=== PATIENT | male | born 1990 | race Caucasian/White ===

== ENCOUNTER 2019-03-30 10:37 | Emergency (ER) | payer SELFPAY ==
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
[2019-03-30 12:42] LABS: Absolute Lymphocytes (CBC) 1.2 K/uL (0.7-4.9); Basophils % 0.2 % (0-1.3); Hematocrit 44.3 % (39.6-49.0); Lymphocytes % 16.2 % (15.3-44.8); MPV 7.5 fL (7.6-11.3); RBC Red Blood Cell Count 4.92 M/uL (4.33-5.43)
[2019-03-30 12:47] LABS: Protime INR 0.91
[2019-03-30] MEDS ORDERED: NA CHLORIDE 0.9% 500 ML ONE (12:48)
[2019-03-30 12:50] LABS: Barbiturates NEGATIVE (NEGATIVE); Benzodiazepines NEGATIVE (NEGATIVE); Cocaine NEGATIVE (NEGATIVE); METHAMPHETAM NEGATIVE (NEGATIVE); Methadone NEGATIVE (NEGATIVE); Opiates NEGATIVE (NEGATIVE); Phencyclidine NEGATIVE (NEGATIVE); THC Cannibis NEGATIVE (NEGATIVE)
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
[2019-03-30 12:58] LABS: ALT/SGPT 96 U/L (12-78); AST/SGOT 145 U/L (15-37); Alkaline Phosphatase 108 U/L (45-117); BUN Blood Urea Nitrogen 5 mg/dL (7-18); Bicarbonate 27 mmol/L (21-32); Bilirubin Direct 0.1 mg/dL (0-0.2); Bilirubin Total 0.5 mg/dL (0.2-1.0); Glucose Level 75 mg/dL (74-106); Potassium 3.7 mmol/L (3.5-5.1); Protein, Total 8.6 g/dL (6.4-8.2); Sodium Level 145 mmol/L (136-145)
--- NOTE | 2019-03-30 13:43 | EKG ---
Test Date: 2019-03-30 Test Time: 12:50:54 Hotel Maintenance Worker: LESLIE MEASUREMENT RESULTS: Intervals: Rate: 87 IN: 132 QRSD: 84 QT: 386 QTc: 464 Basco: P: 78 IN: 132 QRS: 81 T: 82 INTERPRETIVE STATEMENTS: Normal sinus rhythm Normal ECG No previous ECG available for comparison Electronically Signed On 03-30-19 13:43:06 CDT by Jonah Banks
[2019-03-30 14:00] LABS: Urine Blood NEGATIVE (NEG); Urine Glucose NEGATIVE (NEG); Urine Protein NEGATIVE (NEG); Urine Specific Gravity 1.005 (1.005-1.030); Urine pH 5.5 (5.0-7.0)
== END 2019-03-30 14:02 | disposition home or self-care (01) ==
LOC: ER 10:37
DX: S80.10XA Contusion of unspecified lower leg, initial encounter (principal); F10.129 Alcohol abuse with intoxication, unspecified; V48.0XXA Car driver injured in noncollision transport accident in nontraffic accident, initial encounter; Y93.9 Activity, unspecified; Y92.9 Unspecified place or not applicable
CPT/HCPCS: 36415; 70450; 72125; 80048; 80076; 80307; 80320; 80329; 81003; 85025; 85610; 85730; 93005; 99284

== ENCOUNTER 2021-03-19 19:43 | Emergency (ER) | payer SELFPAY ==
--- OUTSIDE RECORDS SUMMARY | 2021-03-19 20:09 | XMS REPORT | Continuity of Care Document ---
:1990 Author Organization [facility] t Address [address] [place] [address] Care Team Providers Name Role Phone Unavailable Unavailable Unavailable Payers Payer Name Policy Type Policy Number Effective Date Expiration Date S ource Problems This patient has no known problems. Allergies, Adverse Reactions, Alerts Allergy Allergy Status Severity Reaction(s) Onset Inactive Treating Comm ents Source Name Type Date Date Clinician No Known DA Active U 2018-0 [facility]ie 3-05 [facility] s 00:00: d 00 [facility] Medications This patient has no known medications. Procedures This patient has no known procedures. Results This patient has no known results.
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
== END 2021-03-20 07:12 | disposition left against medical advice (07) ==
LOC: ER 19:43
DX: Z53.21 Procedure and treatment not carried out due to patient leaving prior to being seen by health care provider (principal)
CPT/HCPCS: 99282

== ENCOUNTER 2021-06-28 11:54 | Emergency (ER) | payer SELFPAY ==
--- OUTSIDE RECORDS SUMMARY | 2021-06-28 11:56 | XMS REPORT | Continuity of Care Document ---
:1990 Author Organization [facility] t Address [address] [place] [address] Care Team Providers Name Role Phone Unavailable Unavailable Unavailable Payers Payer Name Policy Type Policy Number Effective Date Expiration Date S ource Problems This patient has no known problems. Allergies, Adverse Reactions, Alerts Allergy Allergy Status Severity Reaction(s) Onset Inactive Treating Comm ents Source Name Type Date Date Clinician No Known DA Active U 2018-0 [facility] Medications This patient has no known medications. Procedures This patient has no known procedures. Results This patient has no known results.
[2021-06-28] MEDS ORDERED: ONDANSETRON 4 MG/2 ML VIAL ONE (12:41)
[2021-06-28 12:44] LABS: Absolute Lymphocytes (CBC) 0.6 K/uL (0.7-4.9); Basophils % 0.3 % (0-1.3); Hematocrit 39.9 % (39.6-49.0); Lymphocytes % 13.1 % (15.3-44.8); MPV 7.6 fL (7.6-11.3); RBC Red Blood Cell Count 4.25 M/uL (4.33-5.43)
[2021-06-28 12:53] LABS: Protime INR 0.97
[2021-06-28] MEDS ORDERED: FOLIC ACID 1 MG, MULTIVITAMINS INJ 10 ML, THIAMINE HCL 100 MG in NA CHLORIDE 0.9% 1,000 ML IV ONE (13:00)
--- NOTE | 2021-06-28 13:01 | RAD REPORT ---
EXAM DESCRIPTION: CT - Abdomen Pelvis W Contrast - 06/28/2021 12:45 pm CLINICAL HISTORY: ABD PAIN COMPARISON: No comparisons TECHNIQUE: Biphasic, helical CT imaging of the abdomen and pelvis was performed following 100 ml non -ionic IV contrast. No oral contrast administered. All CT scans are performed using dose optimization technique as appropriate and may include automated exposure control or mA/KV adjustment according to patient size. FINDINGS: No suspicious findings in the lung bases. The liver, spleen, and pancreas show no suspicious findings. Liver shows fatty infiltration pattern w hen compared with the spleen. Gallbladder is distended without wall thickening or edema evident. Ston es can be occult. No biliary tree dilatation. Portal vein is unremarkable. Symmetric renal function is seen with no hydronephrosis or suspicious renal mass. No pyelonephritis o r acute parenchymal process. No bladder abnormalities. No adrenal abnormalities. No gastric dilatation or gastric wall thickening seen. Small bowel loops are not dilated. There are s everal distal small bowel loops that are fluid-filled. This is nonspecific. Acute appendicitis not shaffer spected. Manuel of the colon from cecum to rectum appear mildly thickened over what is typically seen. Mild edema pattern is evident as well. No discrete mass or pneumatosis. No free air or free fluid. No hernia, mass or bulky lymphadenopathy. No suspicious bony findings. IMPRESSION: A nonspecific mild pancolitis pattern is seen. No appendicitis or surgically emergent fi nding. Gallbladder is distended but not dilated. Stones can be occult. No biliary tree dilatation seen.
[2021-06-28 13:17] LABS: ALT/SGPT 61 U/L (12-78); AST/SGOT 133 U/L (15-37); Albumin 3.7 g/dL (3.4-5.0); Alkaline Phosphatase 123 U/L (45-117); BUN Blood Urea Nitrogen 4 mg/dL (7-18); Bicarbonate 30 mmol/L (21-32); Bilirubin Direct 0.3 mg/dL (0-0.2); Bilirubin Total 0.8 mg/dL (0.2-1.0); Glucose Level 157 mg/dL (74-106); Protein, Total 7.1 g/dL (6.4-8.2); Sodium Level 137 mmol/L (136-145)
[2021-06-28 13:20] LABS: Potassium 2.7 mmol/L (3.5-5.1)
[2021-06-28] MEDS ORDERED: POTASSIUM 25 MEQ EFFERV TAB ONE (15:02)
[2021-06-28] MEDS ORDERED: KCL 20 MEQ/100 mL IVPB 20 MEQ/100 ML BAG IV ONE (15:03)
[2021-06-28 16:17] LABS: Barbiturates NEGATIVE (NEGATIVE); Benzodiazepines NEGATIVE (NEGATIVE); Cocaine NEGATIVE (NEGATIVE); METHAMPHETAM NEGATIVE (NEGATIVE); Methadone NEGATIVE (NEGATIVE); Opiates NEGATIVE (NEGATIVE); Phencyclidine NEGATIVE (NEGATIVE); THC Cannibis NEGATIVE (NEGATIVE)
--- NOTE | 2021-06-28 16:17 | RAD REPORT ---
EXAM DESCRIPTION: US - Abdomen Exam Limited - 06/28/2021 2:40 pm CLINICAL HISTORY: Nausea / vomiting;Epigastric pain COMPARISON: Abdomen Pelvis W Contrast dated 06/28/2021 FINDINGS: No gallstones, sludge or other abnormalities within the gallbladder lumen. There is no wal l thickening or pericholecystic fluid. Gallbladder is distended but not dilated. No common duct stone or biliary tree dilatation identified. IMPRESSION: No gallbladder or biliary tree abnormality identified.
[2021-06-28] MEDS ORDERED: CIPROFLOXACIN HCL 500 MG TAB ONE (16:42)
[2021-06-28 16:53] LABS: Urine Blood Negative (Negative); Urine Glucose Negative (Negative); Urine Protein Negative (Negative); Urine Specific Gravity 1.015 (1.005-1.030); Urine pH 8.5 (5.0-7.0)
--- NOTE | 2021-06-28 17:00 | EDPHYS ---
Physician Documentation [facility] Name: Doe Vargas Age: 30 yrs Sex: Male : 1990 Arrival Date: 06/28/2021 Time: 11:57 Bed 18 Private MD: ED Physician Abiodun Srivastava HPI: 06/28 12:11 This 30 yrs old Male presents to ER via EMS with complaints of Nausea/Vomiting. pm1 12:11 The patient presents to the emergency department with nausea, vomiting, abdominal pain, pm1 of the suprapubic area, that has resolved. Onset: The symptoms/episode began/occurred yesterday. Possible causes: unknown. The symptoms are aggravated by nothing. The symptoms are alleviated by nothing. Associated signs and symptoms: Pertinent positives:. Severity of symptoms: in the emergency department the symptoms have improved. The patient has not recently seen a physician. Patient drank alcohol 2 hours prior to ER arrival. Historical: - Allergies: 12:03 No Known Allergies; sl2 - Home Meds: 12:03 None [Active]; sl2 - PMHx: 12:03 Depression; Alcoholism; sl2 - Immunization history:: Adult Immunizations up to date, Client reports receiving the Davin \T\ Davin single-dose vaccine. - Social history:: Smoking status: Patient reports the use of cigarette tobacco products, denies chronic smoking, but will smoke occasionally, Patient uses alcohol, on a daily basis. ROS: 12:11 Constitutional: Negative for fever, chills, and weight loss, Cardiovascular: Negative pm1 for chest pain, palpitations, and edema, Respiratory: Negative for shortness of breath, cough, wheezing, and pleuritic chest pain. 12:11 Back: Negative for injury and pain, MS/Extremity: Negative for injury and deformity, Skin: Negative for injury, rash, and discoloration, Neuro: Negative for headache, weakness, numbness, tingling, and seizure. 12:11 Abdomen/GI: Positive for abdominal pain, nausea and vomiting, Negative for diarrhea. 12:11 All other systems are negative. pm1 Exam: 12:11 Constitutional: This is a well developed, well nourished patient who is awake, alert, pm1 and in no acute distress. Head/Face: Normocephalic, atraumatic. 12:11 Skin: Warm, dry with normal turgor. Normal color with no rashes, no lesions, and no evidence of cellulitis. MS/ Extremity: Pulses equal, no cyanosis. Neurovascular intact. Full, normal range of motion. 12:11 Eyes: Exam is negative for acute changes, Periorbital structures: appear normal, Extraocular movements: no acute changes, Conjunctiva: no acute changes, no injection, Sclera: no acute changes, icterus, is not appreciated. 12:11 ENT: Exam is negative for acute changes, Mouth: no acute changes, Lips: normal, moist, Oral mucosa: normal, pink and intact, moist. 12:11 Cardiovascular: Exam negative for acute changes, Rate: normal, Rhythm: regular, Pulses: no pulse deficits are appreciated, Heart sounds: normal, normal S1and S2. 12:11 Respiratory: Exam negative for acute changes, respiratory distress, shortness of breath, Breath sounds: are clear throughout. 12:11 Abdomen/GI: Inspection: abdomen appears normal, Palpation: abdomen is soft and non-tender, in all quadrants. 12:11 Neuro: Exam negative for acute changes, Orientation: is normal, Mentation: is normal, Motor: is normal, moves all fours. Vital Signs: 11:50 BP 130 / 93; Pulse 75; Resp 18; Temp 97.9; Pulse Ox 99% on R/A; Weight 41.28 kg; Height sl2 6 ft. (182.88 cm); 12:07 BP 130 / 93; Pulse 75; Resp 18; Temp 97.9; Pulse Ox 99% ; sl2 13:08 BP 118 / 78; Pulse 72; Resp 16; Pulse Ox 99% on R/A; sl2 14:00 BP 107 / 63; Pulse 69; Resp 18; Temp 97.8; Pulse Ox 97% on R/A; sl2 15:00 BP 118 / 97; Pulse 111; Resp 18; Pulse Ox 99% on R/A; sl2 16:19 BP 103 / 69; Pulse 73; Resp 16; Pulse Ox 97% on R/A; mh5 17:00 BP 114 / 79; Pulse 77; Resp 85; Pulse Ox 99% on R/A; sl2 18:45 BP 122 / 72; Pulse 106; Resp 16; Pulse Ox 100% on R/A; sl2 21:50 BP 121 / 76; Pulse 78; Resp 18; Temp 98.0(O); Pulse Ox 100% on R/A; Pain 0/10; kc4 11:50 Body Mass Index 12.34 (41.28 kg, 182.88 cm) sl2 MDM: 12:10 Patient medically screened. pm1 16:22 Data reviewed: vital signs. Data interpreted: Pulse oximetry: on room air is 97 %. pm1 Interpretation: normal. 16:23 Counseling: I had a detailed discussion with the patient and/or guardian regarding: the pm1 historical points, exam findings, and any diagnostic results supporting the discharge/admit diagnosis, lab results, radiology results, the need for outpatient follow up, a family practitioner, Alcohol detoxification center, to return to the emergency department if symptoms worsen or persist or if there are any questions or concerns that arise at home. 06/28 12:11 Order name: Acetaminophen pm1 06/28 12:11 Order name: Basic Metabolic Panel; Complete Time: 13:42 pm1 06/28 12:11 Order name: CBC with Diff; Complete Time: 12:51 pm1 06/28 12:11 Order name: ETOH Level; Complete Time: 13:42 pm1 06/28 12:11 Order name: Hepatic Function; Complete Time: 13:42 pm1 06/28 12:11 Order name: PT-INR; Complete Time: 13:42 pm1 06/28 12:11 Order name: Ptt, Activated; Complete Time: 13:42 pm1 06/28 12:11 Order name: Urine Drug Screen; Complete Time: 16:21 pm1 06/28 12:11 Order name: CT Abd/Pelvis - IV Contrast Only; Complete Time: 13:42 pm1 06/28 12:11 Order name: Acetaminophen Level; Complete Time: 13:42 EDMS 06/28 14:13 Order name: US Abdomen Limited; Complete Time: 16:21 pm1 06/28 16:53 Order name: Urine Dipstick-Ancillary EDMS 06/28 12:11 Order name: EKG; Complete Time: 12:12 pm1 06/28 12:11 Order name: EKG - Nurse/Tech; Complete Time: 16:14 pm1 06/28 12:11 Order name: IV Saline Lock; Complete Time: 12:36 pm1 06/28 12:11 Order name: Labs collected and sent; Complete Time: 12:36 pm1 06/28 12:11 Order name: Urine Dipstick-Ancillary (obtain specimen); Complete Time: 16:15 pm1 Administered Medications: 12:52 Drug: Zofran (Ondansetron) 4 mg Route: IVP; Site: left antecubital; sl2 15:00 Follow up: Response: No adverse reaction; Nausea is decreased sl2 12:56 Drug: Banana Bag - (NS 0.9% 1000 ml, foLIC Acid 1 mg, Thiamine 100 mg, Multivitamin 1 sl2 amp) Route: IV; Rate: calculated rate; Site: left antecubital; 15:01 Follow up: Response: No adverse reaction; IV Intake: 1000ml sl2 15:01 Follow up: IV Status: Completed infusion; IV Intake: 1000ml sl2 14:50 Drug: Potassium Chloride 20 mEq Route: IV; Rate: calculated rate; Site: left sl2 antecubital; 15:22 Follow up: Response: No adverse reaction sl2 16:50 Follow up: IV Status: Completed infusion; IV Intake: 100ml sl2 14:50 Drug: Potassium Effervescent Tablet 50 mEq Route: PO; sl2 15:22 Follow up: Response: No adverse reaction sl2 16:43 Drug: Cipro (ciprofloxacin) 500 mg Route: PO; sl2 17:16 Follow up: Response: No adverse reaction sl2 Disposition Summary: 06/28/21 16:59 Discharge Ordered Location: Home pm1 Problem: new pm1 Symptoms: have improved pm1 Condition: Stable pm1 Diagnosis - Alcohol abuse pm1 - Vomiting pm1 - Colitis pm1 Followup: pm1 - With: Emergency Department - When: As needed - Reason: Worsening of condition Followup: pm1 - With: Private Physician - When: 2 - 3 days - Reason: Recheck today's complaints, Continuance of care, Re-evaluation by your physician Discharge Instructions: - Discharge Summary Sheet pm1 - Alcohol Abuse and Nutrition pm1 - Vomiting, Adult pm1 - Colitis pm1 - Alcohol Abuse and Dependence Information, Adult pm1 Forms: - Medication Reconciliation Form pm1 - Thank You Letter pm1 - Antibiotic Education pm1 - Prescription Opioid Use pm1 Prescriptions: - ondansetron 4 mg Oral tablet,disintegrating - place 1 tablet by TRANSLINGUAL route every 8 hours As needed; 12 tablet; pm1 Refills: 0, Product Selection Permitted - Cipro 500 mg Oral Tablet - take 1 tablet by ORAL route every 12 hours for 10 days; 20 tablet; Refills: 0, pm1 Product Selection Permitted Addendum: 07/01/2021 07:09 Co-signature as Attending Physician, Abiodun Srivastava MD I agree with the assessment and r n plan of care. Attestation: The patient's history, exam findings, diagnostics, and a summary of any interventions or procedures was reviewed in detail with Sidney Castro NP. Signatures: Dispatcher [employer] EDLA Abiodun Srivastava MD MD rn Marinas, TATUM Little CAMPAIGN ASSISTANT pm1 Olga Esparza RN RN sl2 Corrections: (The following items were deleted from the chart) 06/28 12:05 12:03 PMHx: Ulcer; sl2 sl2
--- NOTE | 2021-06-28 17:00 | ER ---
Nurse's Notes [facility] Name: Doe Vargas Age: 30 yrs Sex: Male : 1990 Arrival Date: 06/28/2021 Time: 11:57 Bed 18 Private MD: Diagnosis: Alcohol abuse;Vomiting;Colitis Presentation: 06/28 11:50 Chief complaint: Patient states: Vomiting Blood - patient c/o nausea and vomiting - sl2 onset yesterday - states vomiting blood - states 2 episodes of vomiting today - states h/o alcohol abuse with gastric ulcers - admits to drinking Smirnoffs today. Blood sugar via finger stick = 197 completed by EMS. 11:50 Coronavirus screen: Vaccine status: Patient reports receiving the 1st dose of the Covid sl2 vaccine. Davin and Davin. Ebola Screen: Patient negative for fever greater than or equal to 101.5 degrees Fahrenheit, and additional compatible Ebola Virus Disease symptoms Patient denies exposure to infectious person. Patient denies travel to an Ebola-affected area in the 21 days before illness onset. No symptoms or risks identified at this time. Initial Sepsis Screen: Does the patient meet any 2 criteria? No. Patient's initial sepsis screen is negative. Does the patient have a suspected source of infection? No. Patient's initial sepsis screen is negative. Risk Assessment: Do you want to hurt yourself or someone else? Patient reports no desire to harm self or others. Onset of symptoms was June 27, 2021. 11:50 Method Of Arrival: EMS: [facility] 11:50 Acuity: TRACI 2 sl2 Triage Assessment: 12:04 General: Appears uncomfortable, well developed, Behavior is calm, cooperative, sl2 appropriate for age, Reports Nausea \T\ vomiting. States vomiting blood - onset yesterday with 2 episodes o vomiting today. Historical: - Allergies: 12:03 No Known Allergies; sl2 - Home Meds: 12:03 None [Active]; sl2 - PMHx: 12:03 Depression; Alcoholism; sl2 - Immunization history:: Adult Immunizations up to date, Client reports receiving the Davin \T\ Davin single-dose vaccine. - Social history:: Smoking status: Patient reports the use of cigarette tobacco products, denies chronic smoking, but will smoke occasionally, Patient uses alcohol, on a daily basis. Screenin:07 Abuse screen: Denies threats or abuse. Denies injuries from another. Nutritional sl2 screening: No deficits noted. Tuberculosis screening: No symptoms or risk factors identified. Fall Risk None identified. No fall in past 12 months (0 pts). No secondary diagnosis (0 pts). IV access (20 points). Ambulatory Aid- None/Bed Rest/Nurse Assist (0 pts). Gait- Normal/Bed Rest/Wheelchair (0 pts) Mental Status- Oriented to own ability (0 pts). Assessment: 13:26 Reassessment: potassium 2.7, notified melissa WINN. as6 13:40 Pain: Denies pain. sl2 17:05 Reassessment: Patient being prepared for discharge - states his girlfriend rides a 2 motorcycle - thus unsafe method of transport for patient at this time, patient states he will make a few phone calls to see if he can find someone to transport him home. 17:20 Reassessment: Patient being prepared for discharge home - however due to ETOH abuse sl2 patient needs to be sent home with family, patients mother was contacted - she states she lives 4 hours away also stated that patient lives with his girlfriend who rides a motorcycle thus has no safe transportation with which to take patient home at this time. 18:53 Reassessment: Patient lying quietly in bed, denies nausea, pain or discomfort - patient sl2 states he has no one to provide hime with transportation home at this time. Vital Signs: 11:50 BP 130 / 93; Pulse 75; Resp 18; Temp 97.9; Pulse Ox 99% on R/A; Weight 41.28 kg; Height sl2 6 ft. (182.88 cm); 12:07 BP 130 / 93; Pulse 75; Resp 18; Temp 97.9; Pulse Ox 99% ; sl2 13:08 BP 118 / 78; Pulse 72; Resp 16; Pulse Ox 99% on R/A; sl2 14:00 BP 107 / 63; Pulse 69; Resp 18; Temp 97.8; Pulse Ox 97% on R/A; sl2 15:00 BP 118 / 97; Pulse 111; Resp 18; Pulse Ox 99% on R/A; sl2 16:19 BP 103 / 69; Pulse 73; Resp 16; Pulse Ox 97% on R/A; 5 17:00 BP 114 / 79; Pulse 77; Resp 85; Pulse Ox 99% on R/A; sl2 18:45 BP 122 / 72; Pulse 106; Resp 16; Pulse Ox 100% on R/A; sl2 21:50 BP 121 / 76; Pulse 78; Resp 18; Temp 98.0(O); Pulse Ox 100% on R/A; Pain 0/10; kc4 11:50 Body Mass Index 12.34 (41.28 kg, 182.88 cm) 2 ED Course: 11:57 Patient arrived in ED. sl2 11:57 Olga Esparza, CAROL is Primary Nurse. sl2 11:57 Melissa Castro NP is PHCP. pm1 11:57 Abiodun Srivastava MD is Attending Physician. pm1 12:03 Triage completed. sl2 12:04 Arm band placed on. sl2 12:07 Patient has correct armband on for positive identification. Bed in low position. Call sl2 light in reach. Side rails up X2. 12:07 No provider procedures requiring assistance completed. Maintain EMS IV. Dressing sl2 intact. Good blood return noted. Site clean \T\ dry. Gauge \T\ site: # 18 left antecubital . IV is patent, is intact, with good blood return. 12:32 Patient moved to radiology via stretcher. sl2 12:36 Inserted saline lock: 18 gauge in right antecubital area, using aseptic technique. dh4 Blood collected. 12:45 CT Abd/Pelvis - IV Contrast Only In Process Unspecified. EDMS 12:49 Patient moved back from radiology. sl2 14:40 US Abdomen Limited In Process Unspecified. EDMS 16:14 Acetaminophen Sent. mh5 16:15 Urine Drug Screen Sent. 5 16:15 Initial lab(s) drawn, by ED staff, sent to lab. Urine collected: clean catch specimen, 5 clear, EKG done, by ED staff, reviewed by Melissa Castro NP. 16:16 Warm blanket given. Pulse ox on. NIBP on. mh5 22:08 IV discontinued, intact, bleeding controlled, No redness/swelling at site. Pressure kc4 dressing applied. Administered Medications: 12:52 Drug: Zofran (Ondansetron) 4 mg Route: IVP; Site: left antecubital; 2 15:00 Follow up: Response: No adverse reaction; Nausea is decreased sl2 12:56 Drug: Banana Bag - (NS 0.9% 1000 ml, foLIC Acid 1 mg, Thiamine 100 mg, Multivitamin 1 sl2 amp) Route: IV; Rate: calculated rate; Site: left antecubital; 15:01 Follow up: Response: No adverse reaction; IV Intake: 1000ml sl2 15:01 Follow up: IV Status: Completed infusion; IV Intake: 1000ml sl2 14:50 Drug: Potassium Chloride 20 mEq Route: IV; Rate: calculated rate; Site: left sl2 antecubital; 15:22 Follow up: Response: No adverse reaction sl2 16:50 Follow up: IV Status: Completed infusion; IV Intake: 100ml sl2 14:50 Drug: Potassium Effervescent Tablet 50 mEq Route: PO; sl2 15:22 Follow up: Response: No adverse reaction sl2 16:43 Drug: Cipro (ciprofloxacin) 500 mg Route: PO; sl2 17:16 Follow up: Response: No adverse reaction sl2 Intake: 15:01 IV: 1000ml; Total: 1000ml. sl2 15:01 IV: 1000ml; Total: 2000ml. sl2 16:50 IV: 100ml; Total: 2100ml. sl2 Outcome: 16:59 Discharge ordered by MD. pm1 22:08 Discharged to home ambulatory. [facility] 22:08 Condition: stable 22:08 Discharge instructions given to patient, Instructed on discharge instructions, follow up and referral plans. medication usage, Demonstrated understanding of instructions, follow-up care, medications, Prescriptions given X 2. 22:09 Patient left the ED. kc4 Addendum: 07/01/2021 16:55 Addendum: Other Cipro and Zofran RX called into [facility]. l l1 Signatures: Dispatcher [employer] EDMS Melissa Castro NP CONSULTING SOLUTION DIRECTOR pm1 Alondra Jerome Armin Phillip 4 Lana Freed RN RN ll1 Sandrita Hobbs 4 Olga Esparza RN RN sl2 Chris Sierra RN RN as6 Corrections: (The following items were deleted from the chart) 06/28 12:05 12:03 PMHx: Ulcer; sl2 sl2 12:07 11:50 BP 100 / ???; Pulse 100bpm; Resp 16bpm; Pulse Ox 100% RA; Temp 98.2F; 40.82 kg; sl2 Height 6 ft.; BMI: 12.2; sl2
[2021-06-28 22:23] VITALS: O2SAT 100
[2021-06-28 22:24] VITALS: BP 121/76; TEMP 98
[2021-06-29] MEDS ORDERED: FOLIC ACID 1 MG, MULTIVITAMINS INJ 10 ML, THIAMINE HCL 100 MG in NA CHLORIDE 0.9% 1,000 ML IV SCH (09:00)
[2021-06-29] MEDS ORDERED: FOLIC ACID 1 MG, MULTIVITAMINS INJ 10 ML, THIAMINE HCL 100 MG in NA CHLORIDE 0.9% 1,000 ML IV ONE (09:00)
--- NOTE | 2021-07-01 08:12 | EKG ---
Test Date: 2021-06-28 Test Time: 13:06:23 Certified Public Accountant: AKANKSHA MEASUREMENT RESULTS: Intervals: Rate: 70 FL: 130 QRSD: 96 QT: 420 QTc: 453 [place]: P: 79 FL: 130 QRS: 87 T: 78 INTERPRETIVE STATEMENTS: Normal sinus rhythm Normal ECG Compared to ECG 03/30/2019 12:50:54 No significant changes Electronically Signed On 07-01-21 08:04:13 COMB SETTER by Cody Azul
== END 2021-06-28 22:09 | disposition home or self-care (01) ==
LOC: ER 11:54
DX: K52.9 Noninfective gastroenteritis and colitis, unspecified (principal); F10.20 Alcohol dependence, uncomplicated; F17.210 Nicotine dependence, cigarettes, uncomplicated
CPT/HCPCS: 36415; 74177; 76705; 80048; 80076; 80307; 80320; 80329; 81003; 82565; 85025; 85610; 85730; 93005; 96365; 96366; 96375; 99284; J2405; J3411; J3480; J7030; Q9967